=== PATIENT | female | born 1960 | race Caucasian/White ===

== ENCOUNTER 2020-10-24 09:19 | Outpatient (CLI) | payer MEDICARE, MEDICAID | END 2020-10-24 09:20 | disposition home or self-care (01) | LOC: CSHCT 09:19 | PROVIDERS: ATTEND Surgery | DX: K43.2 Incisional hernia without obstruction or gangrene (principal); K43.9 Ventral hernia without obstruction or gangrene; K46.9 Unspecified abdominal hernia without obstruction or gangrene; K76.0 Fatty (change of) liver, not elsewhere classified | CPT/HCPCS: 74176 ==

== ENCOUNTER 2020-12-29 12:36 | Outpatient (CLI) | payer MEDICARE, OTHER ==
[2020-12-29 23:45] LABS: SARS-CoV-2 PCR by NAA Not Detected (NotDetected)
== END 2020-12-29 12:37 | disposition home or self-care (01) ==
LOC: CSHLAB 12:36
PROVIDERS: ATTEND Surgery
DX: Z01.818 Encounter for other preprocedural examination (principal); Z20.822 Contact with and (suspected) exposure to COVID-19
CPT/HCPCS: 93005; 93010; U0003; U0005

== ENCOUNTER → 2021-01-01 | Day surgery (SDC) | payer MEDICARE, MEDICAID ==
[2020-12-31 13:08] VITALS: BMI 30.7
[~2021-01-01] MED LIST: Bupivacaine PF 0.5% 30 ML VIAL ONE; Dexamethasone 20 MG/5 ML VIAL ONE; Dexamethasone 4 mg/ml Vial ONE; EPINEPHrine 1 MG/ML AMP ONE; Fentanyl 100 MCG/2 ML VIAL ONE; Glycopyrrolate 0.2 MG/ML 5 ML SYRINGE ONE; HYDROcodone/Acetaminophen 5/325 mg Tablet PO PRN; HYDROmorphone 0.5 MG/0.5 ML SYRINGE ONE; Lidocaine 1% MPF 2 ML VIAL ONE; Lidocaine 2% Jelly 5 ML TUBE ONE; Meperidine HCl/PF 25 MG/ML VIAL ONE; Midazolam HCl 2 mg/2 ml Vial ONE; Ondansetron PF 4 MG/2 ML Vial ONE; PHENYLEPHRINE-NS 100 MCG/ML 10 ML SYRINGE ONE; PROPOFOL 20 ML ONE; Rocuronium Bromide 10 MG/ML (10ML VIAL) ONE; ceFAZolin 2 GM/DEX 5% 100 ML BAG ONE
== END | disposition home or self-care (01) ==
LOC: CSHSDC 07:16
PROVIDERS: ATTEND Surgery
PROC: 0WUF4JZ Supplement Abdominal Wall with Synthetic Substitute, Percutaneous Endoscopic Approach (ICD-10-PCS; principal; 2021-01-01)
DX: K43.2 Incisional hernia without obstruction or gangrene (principal); F17.210 Nicotine dependence, cigarettes, uncomplicated; E78.00 Pure hypercholesterolemia, unspecified; I10 Essential (primary) hypertension
CPT/HCPCS: 49654; C1781; J0171; J1100; J1170; J2175; J2250; J2405; J2704; J3010; S0020